=== PATIENT | female | born 1960 | race Caucasian/White ===

== ENCOUNTER 2024-03-08 10:41 | Day surgery (SDC) | payer BC ==
[2024-03-08] MEDS ORDERED: dexmedeTOMIDine HCl 200 MCG/2 ML SDV ONE (11:13)
[2024-03-08] MEDS ORDERED: Propofol 200 MG/20 ML SDV ONE (11:39)
[2024-03-08] MEDS ORDERED: Rocuronium 50 MG/5 ML Vial ONE ×2 (11:39→12:54)
[2024-03-08] MEDS ORDERED: fentaNYL 100 MCG/2 ML SDV ONE (11:39)
[2024-03-08] MEDS: Lactated Ringers 1,000 ML IV SCH (11:45)
[2024-03-08] MEDS ORDERED: Dexamethasone 4 MG/ML 5 ML MDV ONE (12:07)
[2024-03-08] MEDS ORDERED: Ondansetron 4 MG/2 ML SDV ONE ×2 (12:07→14:32)
[2024-03-08] MEDS ORDERED: Phenylephrine 1% 10 MG/ML SDV ONE (12:08)
[2024-03-08] MEDS ORDERED: ceFAZolin 2 GM Vial ONE (12:12)
[2024-03-08] MEDS ORDERED: ePHEDrine 50 MG/ML SDV ONE (12:16)
[2024-03-08] MEDS ORDERED: Ketamine 200 MG/20 ML MDV ONE (12:32)
[2024-03-08] MEDS ORDERED: Sodium Chloride 0.9% 10 ML Syringe FLUSH PRN (13:23)
[2024-03-08] MEDS: Lidocaine 1% 30 ML SDV ONE (13:40)
[2024-03-08] MEDS: Bupivacaine 0.5% 30 ML SDV ONE (13:40)
[2024-03-08] MEDS: EPINEPHrine 1 MG/ML SDV ONE (13:40)
[2024-03-08] MEDS ORDERED: Lactated Ringers 1,000 ML IV ONE (13:45)
[2024-03-08] MEDS ORDERED: Ondansetron 4 MG/2 ML SDV IVPUSH PRN (14:03)
[2024-03-08] MEDS ORDERED: HYDROmorphone 0.5 MG/0.5 ML Syringe IVPUSH PRN (14:03)
[2024-03-08] MEDS ORDERED: Naloxone 0.4 MG/ML SDV IVPUSH PRN (14:03)
[2024-03-08] MEDS ORDERED: fentaNYL 100 MCG/2 ML SDV IVPUSH PRN (14:03)
[2024-03-08] MEDS ORDERED: Sugammadex Sodium 200 MG/2 ML VIAL IV ONE (14:05)
[2024-03-08] MEDS ORDERED: Ketorolac 30 MG/ML SDV ONE (14:05)
[2024-03-08] MEDS ORDERED: droPERidol 5 MG/2 ML SDV IVPUSH ONE (16:21)
[2024-03-08] MEDS ORDERED: Acetaminophen/oxyCODONE 325-5 MG Tab PO PRN (16:32)
[2024-03-08] MEDS: Scopalamine 1mg/3day Transdermal Patch TOP PRN (16:45)
[2024-03-08] MEDS ORDERED: Sodium Chloride 0.9% 10 ML Syringe FLUSH SCH (21:00)
== END 2024-03-08 18:15 | disposition home or self-care (01) ==
LOC: JD.SDS 10:41
PROVIDERS: ATTEND Surgery
DX: K40.90 Unilateral inguinal hernia, without obstruction or gangrene, not specified as recurrent (principal); I10 Essential (primary) hypertension; E11.9 Type 2 diabetes mellitus without complications; E78.5 Hyperlipidemia, unspecified; I25.10 Atherosclerotic heart disease of native coronary artery without angina pectoris; Z95.1 Presence of aortocoronary bypass graft
CPT/HCPCS: 49650; 93005; A9270; J0171; J0665; J0690; J1100; J1885; J2371; J2405; J2704; J3010; J3490; J7120